=== PATIENT | female | born 1985 | race Caucasian/White ===

== ENCOUNTER → 2022-08-02 | Outpatient (CLI) | payer BC ==
--- NOTE | 2022-08-05 08:10 | MM ---
Reason for Exam: Screening (asymptomatic). Patient History: Menarche at age 9. Patient has no children. Premenopausal. Hormonal Contraceptives, from age 20 until age 36. Maternal aunt had breast cancer, age 65. Risk Values: Charissa 5 year model risk: 0.6%. NCI Lifetime model risk: 12.2%. Tissue Density: The breast tissue is heterogeneously dense. This may lower the sensitivity of mammography. Findings: Analyzed By CAD. There is no suspicious group of microcalcifications or new suspicious mass in either breast. Overall Assessment: Negative, BI-RAD 1 Management: Screening Mammogram of both breasts in 1 year. A clinical breast exam by your physician is recommended on an annual basis and results should be correlated with mammographic findings. [facility] will attempt to contact patient to return for supplemental views and ultrasound if indicated. Electronically signed and approved by: Matthew Nava DO
== END | disposition home or self-care (01) ==
LOC: RADMAMWWP 13:59
PROVIDERS: ATTEND Obstetrics & Gynecology
DX: Z12.31 Encounter for screening mammogram for malignant neoplasm of breast (principal); Z80.3 Family history of malignant neoplasm of breast
CPT/HCPCS: 77063; 77067

== ENCOUNTER → 2023-02-19 | Outpatient (CLI) | payer BC ==
[2023-02-19 16:58] LABS: T4, Free (Free Thyroxine) 1.22 ng/dL (0.80-1.80)
[2023-02-19 17:30] LABS: Progesterone 7.6 ng/mL
[2023-02-19 17:55] LABS: HCT 44.5 % (37.2-46.3); HGB 14.4 d/dL (12.0-15.0); MCH 29.6 pg (27.0-32.0); MCHC 32.4 d/dL (32.0-37.0); MCV 91.4 FL (80.0-97.0); Mean Platelet Volume 10.1 FL (9.5-12.2); NRBC Per 100 WBC 0 X 10*3/uL (0.00-0.01); Platelet Count 267 X 10*3/uL (140-440); RBC 4.87 X 10*6/uL (4.10-5.20); RDW 12.7 % (11.5-14.5); WBC 6.73 X 10*3/uL (4.50-10.00)
== END | disposition home or self-care (01) ==
LOC: LABWHC1 11:43
PROVIDERS: ATTEND Obstetrics & Gynecology
DX: N97.9 Female infertility, unspecified (principal)
CPT/HCPCS: 36415; 84144; 84439; 84443; 84479; 85027